=== PATIENT | male | born 1975 | race African-American/Black ===

== ENCOUNTER → 2016-10-17 | Outpatient (CLI) | payer OTHER ==
[~2016-10-17] VITALS: Ht 190.5 cm; Wt 131.5 kg
[~2016-10-17] MED LIST: CELE50CA PO; HYZA100T2 PO; LIDOCAINE 2% INJ 100 MG/5 ML SDV (FOR ANES.) As Ordered ONE; PROPOFOL 200 MG/20 ML VIAL As Ordered ONE
--- NOTE | 2016-10-17 12:22 | ROOR ---
Patient Name: Ignacio Gonzalez Procedure Date: 10/17/2016 11:49 AM Date of : 1975 Age: 41 Room: [facility] Gender: Male Note Status: Finalized Procedure: Colonoscopy Indications: Hematochezia Providers: Cristopher PINEDA MD Referring MD: PARI YAÑEZ MD Requesting Provider: Medicines: Monitored Anesthesia Care Complications: No immediate complications. Procedure: Pre-Anesthesia Assessment: - The heart rate, respiratory rate, oxygen saturations, blood pressure, adequacy of pulmonary ventilation, and response to care were monitored throughout the procedure. The Colonoscope was introduced through the anus and advanced to the cecum, identified by appendiceal orifice and ileocecal valve. The colonoscopy was performed without difficulty. The patient tolerated the procedure well. The quality of the bowel preparation was good. Findings: The perianal and digital rectal examinations were normal. A fungating partially obstructing large mass was found in the distal sigmoid colon. The mass was partially circumferential (involving one-half of the lumen circumference). The mass measured four cm in length. This was biopsied with a cold forceps for histology. Area was tattooed with an injection of Yolis ink. Two sessile polyps were found in the ascending colon. The polyps were diminutive in size. These polyps were removed with a cold snare. Resection and retrieval were complete. The exam was otherwise without abnormality on direct and retroflexion views. Impression: - Rule out malignancy, partially obstructing tumor in the distal sigmoid colon. (at 22 cm from anal verge). Biopsied. Tattooed just distal to lesion. - Two diminutive polyps in the ascending colon, removed with a cold snare. Resected and retrieved. - The examination was otherwise normal on direct and retroflexion views. Recommendation: - Await pathology results. - Refer to a surgeon at appointment to be scheduled. Cristopher Pineda MD Cristopher PINEDA MD 10/17/2016 12:21:51 PM This report has been signed electronically. Number of Addenda: 0 Note Initiated On: 10/17/2016 11:49 AM Estimated Blood Loss: Estimated blood loss: none.
[2016-10-17 12:50] VITALS: BP 148/92
== END | disposition home or self-care (01) ==
LOC: M OPP 10:40
PROVIDERS: ATTEND Internal Medicine Gastroenterology
DX: C18.9 Malignant neoplasm of colon, unspecified (principal); D12.2 Benign neoplasm of ascending colon; I10 Essential (primary) hypertension; G47.30 Sleep apnea, unspecified; Z87.891 Personal history of nicotine dependence; Z79.899 Other long term (current) drug therapy

== ENCOUNTER → 2016-10-24 | Outpatient (CLI) | payer OTHER ==
[~2016-10-24] MED LIST changes: -LIDOCAINE 2% INJ 100 MG/5 ML SDV (FOR ANES.) As Ordered ONE; -PROPOFOL 200 MG/20 ML VIAL As Ordered ONE
[2016-10-24 11:12] LABS: MEAN CORPUSCULAR HEMOGLOBIN 30.4 pg (27.0-33.0); MEAN CORPUSCULAR HGB CONC 34.4 g/dl (32.0-36.5); MEAN CORPUSCULAR VOLUME 88.4 fl (80.0-96.0); RED CELL DISTRIBUTION WIDTH 12.9 % (11.5-14.5); WHITE BLOOD COUNT 6.6 K/mm3 (4.0-10.0)
[2016-10-24 11:55] LABS: CARCINOEMBRYONIC ANTIGEN < 0.5 NG/ML (<2.5)
[2016-10-24 12:02] LABS: ALBUMIN 3.6 GM/DL (3.2-5.2); ALBUMIN/GLOBULIN RATIO 0.92 (1.00-1.93); ALKALINE PHOSPHATASE 103 U/L (45-117); ALT/SGPT 109 U/L (12-78); ANION GAP 5 MEQ/L (8-16); AST/SGOT 35 U/L (15-37); BILIRUBIN,TOTAL 0.7 MG/DL (0.2-1.0); BLOOD UREA NITROGEN 11 MG/DL (7-18); CARBON DIOXIDE LEVEL 32 MEQ/L (21-32); CHLORIDE LEVEL 104 MEQ/L (98-107); CREATININE FOR GFR 0.86 MG/DL (0.70-1.30); GLOMERULAR FILTRATION RATE > 60.0 (>60); GLUCOSE, FASTING 86 MG/DL (70-105); POTASSIUM SERUM 4.1 MEQ/L (3.5-5.1); SODIUM LEVEL 141 MEQ/L (136-145); TOTAL PROTEIN 7.5 GM/DL (6.4-8.2)
== END ==
LOC: M LAB 10:19
PROVIDERS: ATTEND Surgery
DX: C18.7 Malignant neoplasm of sigmoid colon (principal)

== ENCOUNTER → 2016-10-29 | Outpatient (CLI) | payer OTHER ==
[~2016-10-29] MED LIST changes: +GASTROGRAFIN SOLUTION 30ML (Q9963) As Ordered ONE; +IBUP60TA PO; +ISOVUE-370 76% 100ML VIAL (Q9967) As Ordered ONE; +PERCOCET PO
--- NOTE | 2016-10-29 23:17 | REP ---
Clinical: Carcinoma of the sigmoid colon. Technique: Axial contrast enhanced images from the lung bases to the pubic symphysis using oral and 100 ml Isovue 370 intravenous contrast material with multiplanar re-formations, precontrast, and delayed images of the abdomen. Comparison: None. Findings: Lung bases are clear and without obvious consolidation, nodule or mass lesion. A small hiatal hernia is identified at the gastroesophageal junction. Visualized heart and pericardium normal. Liver, spleen, pancreas, gallbladder, bilateral adrenal glands and kidneys are normal. A 1 cm fat containing periumbilical hernia is identified. The enteric system is without obstruction or acute inflammatory process. Normal terminal ileum and appendix are identified in the right lower quadrant. Abdominal aorta and vasculature appears normal. Pelvis demonstrates a presumed distal sigmoid mass measuring roughly 4.1 x 3.7 x 3.0 cm (images 131 - 139). Small scattered mesenteric lymph nodes are identified measuring up to approximately 8 mm short axis diameter and are nonspecific. No pelvic fluid or ascites. Bladder and prostate/seminal vesicles appear normal. Musculoskeletal structures demonstrate degenerative changes to the lumbosacral spine. Findings: 4.1 cm distal sigmoid mass compatible with the given history of carcinoma. Small mesenteric lymph nodes are nonspecific. No ascites. No obvious metastatic disease. Signed by Solis Mckeon MD 10/29/2016 11:08 P
== END ==
LOC: M RAD 08:01
PROVIDERS: ATTEND Surgery
DX: C18.9 Malignant neoplasm of colon, unspecified (principal)

== ENCOUNTER 2016-10-31 12:41 | Inpatient (IN) | payer OTHER ==
--- NOTE | 2016-10-30 17:30 | HPE ---
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 The patient reports that he had noted some occasional rectal bleeding. He apparently had stool guaiac testing that revealed two of three test cards were positive for blood. He underwent a colonoscopy by Dr. Cristopher Pineda on 10/17/2016. This revealed what Dr. Pineda described as a "fungating partially obstructing large mass was found in the distal sigmoid colon. The mass was partially circumferential." The area was biopsied and tattooed just distal to the lesion. Biopsy of the mass revealed foci of moderately to poorly differentiated colonic adenocarcinoma in a background of adenomatous polyp with high-grade dysplasia. He had a CEA level that was in the normal range. A CT of the abdomen and pelvis was done on 10/29/2016. This revealed a thickened area in the distal sigmoid, which the radiologist interpreted as a 4.1 x 3.7 x 3.0 cm mass. He noted some small scattered mesenteric lymph nodes measuring up to 8 mm in size, which were not felt to be specific. There was no evidence of metastatic disease elsewhere. He reports that he has been having regular bowel function. He has no abdominal pain. He indicates that a paternal uncle is currently undergoing treatment for colon cancer and a paternal great-grandmother also had colon cancer. The patient is now being admitted as a morning admission on 10/31/2016 to undergo a laparoscopic sigmoid colectomy. ALLERGIES: The patient denies any known drug allergies. CURRENT MEDICATIONS: Include Hyzaar daily, Celebrex daily and MiraLax on an as needed basis. His medical history is significant for hypertension. He has a history of obstructive sleep apnea and has been outfitted with a continuous positive airway pressure (CPAP) device at night. He has some degenerative disc disease involving his back for which he has some ongoing pain issues. He has his recent diagnosis of colon cancer. Surgical history is significant only for some LASIK eye surgery, and he had his colonoscopy on 10/17/2016. FAMILY HISTORY: The patient's father had hypertension, and his mother has no current medical problems. Two paternal family members, his great grandmother and his uncle, have been diagnosed with colon cancer. SOCIAL HISTORY: The patient is . He has two small children. He is a former smoker, having smoked about one-half pack per day for 15 years. He denies any significant alcohol use. He is currently active duty [employer] but is in the process of working toward long-term. He is reportedly to be on active duty at least into the fall. REVIEW OF SYSTEMS: The patient denies any chills, fever or weight loss. He has had no visual or auditory symptoms. He denies any chest pain or palpitations. He denies any cough, wheezing or sputum production. He does note that he has had some rectal bleeding intermittently. He denies constipation or diarrhea. He denies any dysuria or hematuria. He does have some chronic issues with back pain. He has had no skin issues. He denies any psychiatric problems. He has no history of deep vein thrombosis (DVT) or pulmonary embolus. PHYSICAL EXAMINATION: Reveals a very pleasant man who is 6 feet 4 inches tall with a weight of 135 kg, giving him a body mass index (BMI) of approximately 36. He is alert, oriented and cooperative. Skin: Is warm and dry. Sclerae are anicteric. Mucous membranes are moist. The neck is supple without mass or bruit. Heart: Exam shows a regular rate and rhythm. The lungs are clear to auscultation bilaterally. Abdomen is mildly obese. He has no evident scars. He has normoactive bowel sounds. The abdomen is soft and nontender without appreciable mass. Digital rectal examination was deferred given his very recent colonoscopy, revealing a normal rectum. Extremities: Show intact peripheral circulation. Laboratory studies were obtained on 10/24/2016. A CBC revealed a white count of 6.6 with a hemoglobin of 15, hematocrit of 44% and a platelet count of 269,000. The differential count is normal. Chemistry profile showed a sodium of 141, potassium 4.1, chloride 104, CO2 of 32, BUN of 11, creatinine 0.86 and a glucose of 86. Liver function tests were remarkable only for a minimal elevation of the ALT to 109, his total protein of 7.5 with an albumin of 3.6 and the CEA level is less than 0.5. His CT was done on 10/29/2016 with results as noted in the history of the present illness. IMPRESSION: 1. Sigmoid carcinoma. 2. Obstructive sleep apnea. 3. Hypertension. 4. Chronic back pain. 5. Obesity. PLAN: The patient is being admitted on the morning of 10/31/2016 to undergo a laparoscopic sigmoid colectomy. He is to perform a full mechanical and antibiotic bowel preparation utilizing SUPREP, neomycin, and Flagyl on 10/30/2016. He will receive Entereg preoperatively. He will receive a dose of Invanz preoperatively for prophylaxis. A Oscar catheter will be inserted in the operating room. The patient was counseled for a laparoscopic approach to his sigmoid colectomy. It is understood that conversion to an open procedure is always a possibility. The patient was counseled regarding the risks of the procedure which include, but are not limited to, bleeding, infection, scarring, adverse drug reaction, need for further surgery, injury of internal organ, anastomotic leak, and hernia. The patient and his spouse had an opportunity to ask questions. They desire to proceed with the surgery as I have outlined it. He will be coming in on 10/31/2016. VIKAS
[~2016-10-31] VITALS: Ht 190.5 cm; Wt 134.5 kg
[~2016-10-31 12:41] MED LIST changes: -GASTROGRAFIN SOLUTION 30ML (Q9963) As Ordered ONE; -IBUP60TA PO; -ISOVUE-370 76% 100ML VIAL (Q9967) As Ordered ONE; -PERCOCET PO
[2016-10-31] MEDS ORDERED: LR 1,000 ML IV SCH ×2 (12:45→23:45)
[2016-10-31] MEDS ORDERED: ALVIMOPAN 12 MG CAPSULE (ENTEREG) PO ONE (13:00)
[2016-10-31] MEDS ORDERED: ERTAPENEM SODIUM 1 GM in NS MINI-BAG PLUS 50 ML IV ONE (13:00)
[2016-10-31] MEDS ORDERED: BUPIVACAINE HCL 0.25% 30 ML VIAL As Ordered ONE (17:38)
[2016-10-31] MEDS ORDERED: ROCURONIUM BROMIDE 50 MG/5 ML VIAL As Ordered ONE ×4 (19:02→20:35)
[2016-10-31] MEDS ORDERED: PROPOFOL 200 MG/20 ML VIAL As Ordered ONE (19:11)
[2016-10-31] MEDS ORDERED: KETOROLAC 60 MG/2 ML VIAL (J1885) As Ordered ONE (19:11)
[2016-10-31] MEDS ORDERED: HYDROmorphone HCL 2 MG/ML 1ML VIAL (J1170) As Ordered ONE ×2 (19:11→21:29)
[2016-10-31] MEDS ORDERED: dexameTHASONE 4 MG/ML 1ML VIAL (J1100) As Ordered ONE (19:11)
[2016-10-31] MEDS ORDERED: MIDAZOLAM INJ 2 MG/2 ML VIAL (J2250) As Ordered ONE (19:11)
[2016-10-31] MEDS ORDERED: ONDANSETRON 4MG/2ML VIAL (J2405) As Ordered ONE (19:11)
[2016-10-31] MEDS ORDERED: LIDOCAINE 2% INJ 100 MG/5 ML SDV (FOR ANES.) As Ordered ONE (19:11)
[2016-10-31] MEDS ORDERED: fentaNYL 250 MCG/5 ML INJECTION (J3010) As Ordered ONE (19:11)
[2016-10-31] MEDS ORDERED: GLYCOPYRROLATE INJ 0.2 MG/ML 2 ML VIAL As Ordered ONE (19:11)
[2016-10-31] MEDS ORDERED: NEOSTIGMINE 1MG/ML 5 ML SYRINGE (J2710) As Ordered ONE (19:11)
[2016-10-31] MEDS ORDERED: PHENYLephrine HCL 500 MCG/5 ML (100MCG/ML) SYRINGE (J2370) As Ordered ONE (19:23)
[2016-10-31] MEDS ORDERED: KETOROLAC 30 MG/ML VIAL (J1885) IV SCH (23:30)
[2016-10-31] MEDS ORDERED: ACETAMINOPHEN TAB 650MG DOSE (2X325MG) PO PRN (23:30)
[2016-10-31] MEDS ORDERED: MORPHINE 2 MG/ML 1ML SYRINGE IV PRN (23:30)
[2016-10-31] MEDS ORDERED: ONDANSETRON 4MG/2ML VIAL (J2405) IV PRN ×2 (23:30→23:45)
[2016-10-31] MEDS ORDERED: METOCLOPRAMIDE INJ 10MG/2ML VIAL (J2765) IV PRN (23:30)
[2016-10-31] MEDS: LR 1,000 ML IV SCH (23:30)
[2016-11-01] VITALS (10 sets, daily range): BP systolic 102–138; BP diastolic 65–80
[2016-11-01] MEDS: fentaNYL 100 MCG/2 ML INJECTION (J3010) IV PRN ×3 (00:10→00:42)
[2016-11-01] MEDS: KETOROLAC 30 MG/ML VIAL (J1885) IV SCH ×4 (01:00→20:17)
[2016-11-01] MEDS: NORCO, ANEXSIA 5/325MG TABLET (HYDROcodone/ACETAMINOPHEN) PO PRN ×4 (01:38→18:46)
[2016-11-01] MEDS: ALVIMOPAN 12 MG CAPSULE (ENTEREG) PO SCH ×2 (08:53→20:16)
[2016-11-01] MEDS: LR 1,000 ML IV SCH (08:53)
[2016-11-01] MEDS: hydroCHLOROthiazide 25 MG TAB PO SCH (09:00)
[2016-11-01] MEDS: LOSARTAN 50 MG TAB PO SCH (09:00)
[2016-11-01] MEDS: MORPHINE 4 MG/ML 1ML SYRINGE IV PRN ×2 (09:55→23:38)
[2016-11-01] MEDS: ENOXAPARIN 40 MG/0.4 ML SYRINGE (J1650) SC SCH (12:55)
[2016-11-02] MEDS: KETOROLAC 30 MG/ML VIAL (J1885) IV SCH ×4 (01:44→20:36)
[2016-11-02] MEDS: NORCO, ANEXSIA 5/325MG TABLET (HYDROcodone/ACETAMINOPHEN) PO PRN ×5 (01:46→19:01)
[2016-11-02 02:00] VITALS: BP 126/80
[2016-11-02 05:46] LABS: BASO % 0.2 % (0.0-1.0); EOS % 0.4 % (0.0-3.0); LARGE UNSTAINED CELL # 0.1 K/mm3 (0.0-0.4); LARGE UNSTAINED CELL % 1.4 % (0.0-4.0); LYMPH # 2.4 K/mm3 (1.5-4.5); LYMPH % 24.8 % (24.0-44.0); MEAN CORPUSCULAR HEMOGLOBIN 30.1 pg (27.0-33.0); MEAN CORPUSCULAR HGB CONC 34.3 g/dl (32.0-36.5); MEAN CORPUSCULAR VOLUME 87.7 fl (80.0-96.0); MONO # 0.5 K/mm3 (0.0-0.8); MONO % 5.7 % (0.0-5.0); NEUTROPHILS # 6.1 K/mm3 (1.8-7.7); NEUTROPHILS % 67.5 % (36.0-66.0); PLATELET COUNT, AUTOMATED 249 k/mm3 (150-450); RED CELL DISTRIBUTION WIDTH 13.1 % (11.5-14.5)
[2016-11-02 05:57] LABS: ALBUMIN 2.9 GM/DL (3.2-5.2); ALBUMIN/GLOBULIN RATIO 0.78 (1.00-1.93); ALKALINE PHOSPHATASE 78 U/L (45-117); ALT/SGPT 76 U/L (12-78); ANION GAP 7 MEQ/L (8-16); AST/SGOT 41 U/L (15-37); BILIRUBIN,TOTAL 0.4 MG/DL (0.2-1.0); BLOOD UREA NITROGEN 10 MG/DL (7-18); CALCIUM LEVEL 8.2 MG/DL (8.5-10.1); CARBON DIOXIDE LEVEL 28 MEQ/L (21-32); CHLORIDE LEVEL 105 MEQ/L (98-107); CREATININE FOR GFR 0.88 MG/DL (0.70-1.30); GLOMERULAR FILTRATION RATE > 60.0 (>60); GLUCOSE, FASTING 95 MG/DL (70-105); POTASSIUM SERUM 3.3 MEQ/L (3.5-5.1); SODIUM LEVEL 140 MEQ/L (136-145); TOTAL PROTEIN 6.6 GM/DL (6.4-8.2)
[2016-11-02 06:00] VITALS: BP 137/70
--- NOTE | 2016-11-02 06:33 | RO ---
DATE OF PROCEDURE: 10/31/2016 PREOPERATIVE DIAGNOSIS: Sigmoid carcinoma. POSTOPERATIVE DIAGNOSIS: Sigmoid carcinoma. PROCEDURE PERFORMED: Laparoscopic sigmoid colectomy with coloproctostomy. SURGEON: Dr. Rosa DOBBY LOOMS PEGGER: Giuliano Ortiz ANESTHESIA: General. INDICATIONS FOR THE PROCEDURE: Patient is a 41-year-old man who had noted some rectal bleeding. He underwent evaluation with a colonoscopy, which identified a mass in the sigmoid colon. Pathology revealed moderately to poorly differentiated adenocarcinoma in a background of adenomatous polyp with high-grade dysplasia. He is now for a laparoscopic sigmoid colectomy. OPERATIVE PROCEDURE: The patient was placed on the table in a supine position. He was placed under general endotracheal anesthesia. Thromboembolism deterrents (TEDs) and sequentials were utilized. A Oscar catheter was inserted. He was moved into a low lithotomy position and a liang bag was used to support the patient to prevent movement. A digital rectal examination revealed no palpable rectal lesions. The patient's abdomen was prepped and draped in a sterile fashion. 0.25% Marcaine was infiltrated at the inferior aspect of the umbilicus and a short midline incision was made. This was deepened through the abundant subcutaneous fat to the fascia, which was opened at a point just to the right of the midline. A Kevon cannula was inserted and the abdomen was insufflated with carbon dioxide gas. Initial examination revealed relatively poor insufflation. The Kevon was somewhat adjusted and the patient was then tilted to a Trendelenburg position and the patient also received additional muscle blocking agents from anesthesia. Inspection showed normal-appearing loops of small and large bowel. As the small bowel came up out of the pelvis some scattered small dark spots were noted on the peritoneum consistent with some spilled spot carbon marker. Additional local anesthesia was achieved, and a 5 mm trocar was placed in the right lower quadrant just below the level of the umbilicus and a second 5 mm trocar was placed low in the right lower quadrant. Graspers were inserted. The area of the tumor was identified. There was clearly a firmer area in the bowel, though it appeared that the tumor sat on the mesenteric side of the bowel with the antimesenteric wall stretched over this. The carbon spot marker was noted just distal to the tumor as indicated by the dry house worker. The patient did not have any significant redundancy of the sigmoid colon. I then proceeded to divide some of the lateral attachments of the sigmoid and carried this dissection up along the lateral aspect of the descending colon. The patient was positioned into different positions to facilitate the dissection up along the lateral aspect of the descending colon. This dissection was carried up almost to the splenic flexure area. The avascular plane lateral and posterior to the colon was opened widely and the colon freed quite well. It appeared that this would provide adequate length for an anastomosis at the anticipated site in the pelvis. The site was selected for division of the sigmoid colon just about at the juncture of the descending and sigmoid colon. Another 5 mm port was placed in the left upper quadrant to provide an additional retractor to assist in the dissection and division of the colon. The colon was elevated at the selected point for division and the mesentery was opened down to its base using the Harmonic scalpel. The colon was stapled with a load of the echelon stapler after the 5 mm trocar low in the right lower quadrant was converted to a 12 mm trocar. The bowel was nicely divided with excellent hemostasis. Any remaining portions of the mesentery at this site were divided down to the base. Dissection then proceeded inferiorly dividing the mesentery of the sigmoid at its base and working toward and then across the sacral promontory. Attention was taken to getting into the appropriate plane for a mesorectal excision. This dissection was then carried distally into the pelvis and below the point of the carbon spot marker, which lay distal to the tumor. Once we had reached approximately 5 cm distal to the tumor, the mesorectum was divided working from posteriorly toward the bowel wall, again using the Harmonic scalpel. Once the mesorectum had been divided adequately, the bowel was again stapled with the echelon stapler. Two green loads were required to completely transect the rectum. The specimen was set aside in the right side of the abdomen. The pelvis was irrigated. Some fibrofatty tissue was dissected off the stapled end of the rectum to provide an area for excellent purchase of the cooper for an EEA anastomosis. The end of the colon was then mobilized further by dividing the attachments of the mesentery along the retroperitoneum. This provided the additional length to easily bring the end of the colon down to meet the rectal stump. At this point, the Kevon cannula was removed and the infraumbilical incision was extended to perhaps 7 cm. A Mobius retractor was placed. The specimen was delivered through the wound and set aside. The end of the colon was then delivered. Some fibrofatty tissue was dissected off the end of the colon. The staple line was then excised. A pursestring suture of #2-0 Prolene was placed in the end of the colon and the anvil of a 33 mm EEA stapler was placed into the bowel and the pursestring was tied down. A second additional pursestring was also placed. The end of the colon was then irrigated and then reduced into the abdomen. The Mobius retractor was removed and the surgical team then changed gown and gloves. We then moved to use of the closing tray of instruments with several additional selected endoscopic instruments. At this point, I took the time to open the specimen along the antimesenteric border. The patient was found to have an approximately 5 cm, smooth, finely nodular mass along the mesenteric border of the colon. This was quite firm but was not ulcerated and had a very discrete border and a nice oval shape. There was not any definite invasion through the bowel wall and I did not feel any distinct lymph nodes. This was sent in formalin for permanent pathology. The peritoneum in the infraumbilical incision was closed with #0 chromic suture and the fascia was closed with interrupted sutures of #1 Vicryl. The abdomen was then reinflated. The patient was moved back into a fairly steep Trendelenburg position. The anvil of the stapler was grasped with the anvil grasper. I moved down to the perineum and the 33 mm stapler was then inserted into the anus and advanced to the end of the rectal stump. The post of the stapler was advanced through the rectal wall adjacent to the staple line. There had been a small area in the center of the staple line that looked a little like there was a very small separation and this site was selected for placement of the post. The anvil was then attached to the stapler and the stapler was closed and fired. The stapler was removed and two intact doughnuts of tissue were identified. Inspection of the staple line, and in fact during the course of the stapling, there was a small serosal tear on the anterior aspect of the rectal stump just below the anastomosis. I elected to place a suture in this area using endoscopic suturing. Actually two #3-0 Vicryl sutures were placed to approximate tissue between the rectal stump and the colon across the anastomosis to reinforce this area. The pelvis was then irrigated copiously with saline. Inspection showed that there was no significant tension on the anastomosis. The pelvis was filled with saline and I insufflated air through a colonoscope in the rectum. A noncrushing bowel clamp had been placed across the distal colon above the anastomosis. There was no air leak identified. I was able to clearly see the anastomosis with the colonoscope. There was no bleeding and no evidence of any defect in the anastomosis. The anastomosis appeared to lie at approximately 14 cm above the anal verge. The colonoscope was removed. I again changed gown and gloves. At this point, a final inspection of the abdomen showed no evidence of bleeding. The patient was returned to a flat position. The remaining trocars were used to deflate the abdomen and they were then removed. Prior to removing the 12 mm trocar in the right lower quadrant, an Endo Close device was used to place a single suture in the inner fascia and peritoneum using #0 Vicryl to help prevent herniation. The skin incisions were then all closed with absorbable buried sutures. Steri-Strips were applied. The patient tolerated the procedure well without apparent complication. He was awakened in the operating room, extubated and moved to the recovery room in stable condition. VIKAS
[2016-11-02] MEDS ORDERED: POTASSIUM CHLORIDE 10 MEQ SR TABLET PO ONE (07:45)
[2016-11-02] MEDS: ENOXAPARIN 40 MG/0.4 ML SYRINGE (J1650) SC SCH (09:56)
[2016-11-02] MEDS: LOSARTAN 50 MG TAB PO SCH (09:56)
[2016-11-02] MEDS: hydroCHLOROthiazide 25 MG TAB PO SCH (09:56)
[2016-11-02] MEDS: ALVIMOPAN 12 MG CAPSULE (ENTEREG) PO SCH ×2 (09:56→20:35)
[2016-11-02 10:00] VITALS: BP 167/96
[2016-11-02 14:00] VITALS: BP 152/89
[2016-11-02 22:00] VITALS: BP 160/95
[2016-11-02] MEDS: MORPHINE 4 MG/ML 1ML SYRINGE IV PRN (23:56)
[2016-11-03 02:00] VITALS: BP 142/90
[2016-11-03] MEDS: NORCO, ANEXSIA 5/325MG TABLET (HYDROcodone/ACETAMINOPHEN) PO PRN ×4 (05:08→21:37)
[2016-11-03 06:00] VITALS: BP 132/95
[2016-11-03] MEDS: LOSARTAN 50 MG TAB PO SCH (09:11)
[2016-11-03] MEDS: ALVIMOPAN 12 MG CAPSULE (ENTEREG) PO SCH ×2 (09:11→20:39)
[2016-11-03] MEDS: hydroCHLOROthiazide 25 MG TAB PO SCH (09:12)
[2016-11-03] MEDS: MORPHINE 4 MG/ML 1ML SYRINGE IV PRN (10:28)
[2016-11-03] MEDS: ENOXAPARIN 40 MG/0.4 ML SYRINGE (J1650) SC SCH (11:00)
[2016-11-03 14:30] VITALS: BP 150/83
[2016-11-03 18:00] VITALS: BP 161/103
[2016-11-03] MEDS ORDERED: KETOROLAC 30 MG/ML VIAL (J1885) IV ONE (20:30)
[2016-11-03 22:00] VITALS: BP 150/78
[2016-11-04] MEDS: NORCO, ANEXSIA 5/325MG TABLET (HYDROcodone/ACETAMINOPHEN) PO PRN (02:05)
[2016-11-04 06:00] VITALS: BP 162/68
[2016-11-04] MEDS ORDERED: PERCOCET 5MG/325MG TAB PO PRN ×2 (08:00)
[2016-11-04] MEDS ORDERED: IBUPROFEN 600 MG TAB PO PRN (08:00)
[2016-11-04] MEDS ORDERED: IBUP60TA PO (08:06)
[2016-11-04] MEDS ORDERED: PERCOCET PO (08:06)
[2016-11-04 08:34] VITALS: BP 162/68
[2016-11-04] MEDS: LOSARTAN 50 MG TAB PO SCH (08:34)
[2016-11-04] MEDS: hydroCHLOROthiazide 25 MG TAB PO SCH (08:34)
--- NOTE | 2016-11-22 22:36 | DSES ---
DATE OF ADMISSION: 10/31/2016 DATE OF DISCHARGE: 11/04/2016 ADMITTING DIAGNOSIS: Moderately to poorly-differentiated adenocarcinoma of the sigmoid colon. 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 This was done because of a history of occasional rectal bleeding with two of three stool guaiac test cards turning up positive for blood. At colonoscopy, the informal waiter/waitress described a fungating partially-obstructing large mass in the distal sigmoid colon. The area was biopsied and a tattoo was placed just distal to the lesion. The biopsy revealed foci of moderately to poorly-differentiated adenocarcinoma in a background of adenomatous polyp with high-grade dysplasia. A Carcinoembryonic antigen (CEA) level was obtained that was in the normal range. A CT scan of the abdomen and pelvis was done on October 29, 2016. This revealed a thickened area in the distal sigmoid which the radiologist interpreted as a 4.1 x 3.7 x 3.0 cm mass. He noted some small scattered mesenteric lymph nodes measuring up to 8 mm in size which were not felt to be specific. There was no evidence of metastatic disease elsewhere. The patient is now admitted to undergo a laparoscopic sigmoid colectomy. HOSPITAL COURSE: The patient performed a mechanical and antibiotic bowel preparation at home the day prior to admission. On October 31, he was taken to the operating room where he underwent a laparoscopic sigmoid colectomy with a coloproctostomy. His specimen was removed and opened, revealing an approximately 5 cm smooth but finely nodular mass along the mesenteric border of the rectosigmoid. The tumor was firm but not ulcerated and had a very discrete border. I did not feel any definite lymph nodes within the mesentery. This was sent for permanent pathology. The patient's postoperative course was unremarkable. He was started on clear liquids on the day of surgery. His diet was advanced by postoperative day two. He used infrequent [place] or morphine as needed for pain. He was up ambulating well. He was placed back on his usual blood pressure medications. Because of a slightly low potassium level, he received some oral potassium supplementation. His bowel function was a little slow in returning with his first bowel movements noted on the evening of November 02. His pathology report revealed moderately differentiated adenocarcinoma of the colon invading through the muscularis propria into the pericolic soft tissue. There were two small tumor deposits noted in the pericolic soft tissue, but 17 lymph nodes were identified and these were all negative for metastatic carcinoma. The surgical resection margins were all clear. His tumor was 4 cm in size. By postoperative day four, his discomfort had diminished. His bowel function had returned and he was tolerating a diet well. His incisions were clean and dry. The patient was counseled regarding future care and was discharged home on November 04. FINAL DIAGNOSIS: Moderately differentiated adenocarcinoma of the rectosigmoid with invasion into the pericolonic soft tissue with two small tumor deposits noted in the pericolic soft tissue with zero of 17 lymph nodes positive for metastasis. ADDITIONAL DIAGNOSES: 1. Obstructive sleep apnea. 2. Hypertension. 3. Chronic back pain. 4. Obesity. PROCEDURE PERFORMED: Laparoscopic sigmoid colectomy with coloproctostomy. DISPOSITION: He was discharged on November 04. He was advised that he could take a diet as tolerated. He was to pursue light activity as tolerated, but was advised against any strenuous activity or lifting greater than 30 pounds. He was to followup in my office in 10-14 days. He could shower as desired but leave the Steri-Strips to come off on their own. He was to cover the lower midline wound daily if he noted any drainage. He was provided a note for convalescent leave to provide to his [employer] superiors. He was provided prescriptions for ibuprofen 600 mg by mouth every six hours as needed for pain. He was provided a prescription for Percocet 5/325 tablets 1-2 tablets every four hours as needed for pain, not to exceed eight per day with number 40. He was to continue his celecoxib daily, but was not to take this at the same time as his ibuprofen. He was to resume his Hyzaar as well.
== END 2016-11-04 09:55 | disposition home or self-care (01) | DRG 331 ==
LOC: M OR 12:41 → M RR INP 12:41 → UNDOADMIN 12:41 → M OR 11-01 00:34 → M MS5PR 11-01 00:34 → UNDODISIN 11-04 09:55
PROVIDERS: ADMIT Surgery; ATTEND Surgery
PROC: 0DBM4ZZ Excision of Descending Colon, Percutaneous Endoscopic Approach (ICD-10-PCS; 2016-10-31)
PROC: 0D1M4ZP Bypass Descending Colon to Rectum, Percutaneous Endoscopic Approach (ICD-10-PCS; 2016-10-31)
PROC: 0DTN4ZZ Resection of Sigmoid Colon, Percutaneous Endoscopic Approach (ICD-10-PCS; principal; 2016-10-31 14:30)
DX: C18.7 Malignant neoplasm of sigmoid colon (principal); I10 Essential (primary) hypertension; M54.9 Dorsalgia, unspecified; E66.9 Obesity, unspecified; G47.33 Obstructive sleep apnea (adult) (pediatric); Z99.89 Dependence on other enabling machines and devices; Z82.49 Family history of ischemic heart disease and other diseases of the circulatory system; Z87.891 Personal history of nicotine dependence; Z68.36 Body mass index [BMI] 36.0-36.9, adult; Z80.0 Family history of malignant neoplasm of digestive organs; Z79.899 Other long term (current) drug therapy

== ENCOUNTER → 2016-12-09 | Outpatient (CLI) | payer OTHER ==
[~2016-12-09] MED LIST changes: +IBUP1TAB6 PO; +LISI20TA PO; +PERCOCET PO; +TRAM1CAP15 PO
--- NOTE | 2016-12-10 19:42 | REP ---
PET/CT: History: Restaging colorectal carcinoma. 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 No positive lymph nodes. The patient is status post laparoscopic sigmoid colectomy with coloproctostomy. Diagnosis and treatment in October of 2016. Comparisons: Comparison CT abdomen and pelvis October 29, 2016. TECHNIQUE: 50 minutes following the intravenous injection of a 9.3 mCi dose of F-18 FDG, three-dimensional PET scintigraphy is acquired from the skull base to the proximal thighs. Triplanar noncontrast CT scanning is acquired through the same anatomic range for attenuation correction, and image registration with scan parameters optimized to minimize radiation exposure to the patient. PET scintigraphy and CT datasets were fused and displayed on a workstation with multiplanar and projection display capability. PET/CT Findings: There is no abnormal hypermetabolic uptake in the liver. Normal hepatic and splenic FDG accumulation is seen. There is visible borderline FDG accumulation in a normal size right inguinal lymph node. Maximum standard uptake value is 2.4. Accompanying CT shows two adjacent lymph nodes here, none is enlarged. This is of doubtful significance. There is a somewhat linear pattern of anterior abdominal wall uptake at the laparoscopic incision site with maximum standard uptake value 6.1 here. Given the recent history of surgical procedure, this most likely is healing postsurgical inflammation uptake. No abnormal lymph node uptake is seen in the upper abdomen or retroperitoneum. Left colonic anastomoses is seen with no abnormal hypermetabolic uptake. There is no abnormal thoracic hypermetabolic uptake seen. Head and neck soft tissues are unremarkable. Impression: Increased uptake in the anterior abdominal wall incision site most compatible with postoperative inflammation. No other abnormal hypermetabolic uptake seen. Signed by Dionisio Ceja MD 12/10/2016 09:21 P
== END ==
LOC: M PLARAD 13:28
PROVIDERS: ATTEND Physician Assistant
DX: C18.9 Malignant neoplasm of colon, unspecified (principal)

== ENCOUNTER → 2016-12-17 | Outpatient (REF) | payer OTHER | LOC: M LAB REF 09:04 | PROVIDERS: ATTEND Internal Medicine Medical Oncology | DX: C18.9 Malignant neoplasm of colon, unspecified (principal) ==

== ENCOUNTER 2017-01-01 08:03 | Day surgery (SDC) | payer OTHER ==
[~2017-01-01] VITALS: Ht 190.5 cm; Wt 132.4 kg
[2017-01-01] MEDS ORDERED: LR 1,000 ML IV SCH ×2 (08:15→12:45)
[2017-01-01] MEDS ORDERED: ROCURONIUM BROMIDE 50 MG/5 ML VIAL/SYRINGE As Ordered ONE (08:26)
[2017-01-01] MEDS ORDERED: PROPOFOL 200 MG/20 ML VIAL As Ordered ONE ×3 (08:26→11:19)
[2017-01-01] MEDS ORDERED: LIDOCAINE 2% INJ 100 MG/5 ML SDV (FOR ANES.) As Ordered ONE (08:26)
[2017-01-01] MEDS ORDERED: ONDANSETRON 4MG/2ML VIAL (J2405) As Ordered ONE (08:26)
[2017-01-01] MEDS ORDERED: MIDAZOLAM INJ 2 MG/2 ML VIAL (J2250) As Ordered ONE (08:27)
[2017-01-01] MEDS ORDERED: fentaNYL 100 MCG/2 ML INJECTION (J3010) As Ordered ONE (08:27)
[2017-01-01] MEDS ORDERED: LIDOCAINE 1% SDV INJ 30 ML VIAL As Ordered ONE (10:06)
[2017-01-01] MEDS ORDERED: HEPARIN SOD (PORCINE) 5000 UNITS/ML VIAL As Ordered ONE (10:06)
--- NOTE | 2017-01-01 12:23 | REP ---
Fluoroscopic guidance for Lrkcou-Q-Ciya insertion: 01/01/2017 Clinical history: Stlltt-Q-Tvut insertion. Findings: A single image from C-arm fluoroscopy provided to Dr. Rosa of the surgery department for Jjwmzc-A-Dqil insertion. The AP view of the upper chest region and mediastinum shows catheter tip extending into the SVC. Fluoroscopy time 2 seconds. Signed by Bennett Lujan MD 01/01/2017 06:31 P
[2017-01-01] MEDS ORDERED: ACETAMINOPHEN TAB 650MG DOSE (2X325MG) PO PRN (12:45)
[2017-01-01] MEDS ORDERED: PERCOCET 5MG/325MG TAB PO PRN ×2 (12:45)
[2017-01-01 12:55] VITALS: BP 180/105
--- NOTE | 2017-01-03 09:37 | RO ---
DATE OF PROCEDURE: 01/01/2017 PREOPERATIVE DIAGNOSIS: Rectosigmoid carcinoma for chemotherapy. POSTOPERATIVE DIAGNOSIS: Rectosigmoid carcinoma for chemotherapy. PROCEDURE PERFORMED: Placement of right internal jugular vein [id number] with ultrasound and fluoroscopic guidance. SURGEON: Dr. Rosa ANESTHESIA: Local of 1% Xylocaine with monitored anesthesia care. OPERATIVE PROCEDURE: The patient was placed on the table in a supine position. Then he received sedation from anesthesia. The patient's right neck and upper chest and shoulder were prepped and draped in a sterile fashion. [facility] used to inspect the neck and the patient was tilted into a Trendelenburg position. The carotid artery and internal jugular vein were identified readily on the right. 1% Xylocaine was infiltrated over the area of the internal jugular vein. An 18 gauge needle was then inserted using ultrasound guidance. There was excellent return of blood. A guidewire was placed. The skin was nicked at the wire entry site. The peel-away sheath introducer was passed and the Bard port Ooqqgx-H-Jijo catheter which had previously been flushed with heparinized saline was inserted. The sheath was removed and the patient was returned to a flat position. Blood aspirated readily from the catheter and this was then flushed with heparinized saline. The catheter was pulled back to approximately 15 cm at the skin. A fluoroscopic inspection showed that the catheter was probably a little deep and this was pulled back to approximately 13 cm where there was still excellent return of blood on aspiration and a better position of the tip of the catheter. A subcutaneous pocket was created through a small transverse incision in the infraclavicular fossa after injection of additional local anesthesia. The catheter was then tunneled down to the port pocket. The catheter was cut to length and attached to the port with the locking ring. The port was placed into the subcutaneous pocket and two corner sutures of #3-0 Vicryl were placed to tack the port to the underlying fascia. The skin edges were brought together with some buried sutures of #3-0 chromic. The two skin incisions were then closed with buried #5-0 Vicryl. The port was accessed a final time and flushed with 100 units/cc heparin solution. Steri-Strips were applied followed by small OpSite dressings. The patient tolerated the procedure well without apparent complication. The port placed was a Bard port [id number]-U-[id number] product code number [id number] and lot number [id number]. MTDD
== END 2017-01-01 13:00 | disposition home or self-care (01) ==
LOC: M SDC 08:03
PROVIDERS: ATTEND Surgery
DX: C18.7 Malignant neoplasm of sigmoid colon (principal); I10 Essential (primary) hypertension; G47.33 Obstructive sleep apnea (adult) (pediatric); M12.9 Arthropathy, unspecified; M54.2 Cervicalgia; M54.5 Low back pain; R06.83 Snoring; Z79.899 Other long term (current) drug therapy
CPT/HCPCS: 36561; 76000; C1788; J0690; J2250; J2405; J3010

== ENCOUNTER → 2017-01-07 | Outpatient (REF) | payer OTHER | LOC: M LAB REF 13:16 | PROVIDERS: ATTEND Internal Medicine Medical Oncology | DX: C18.9 Malignant neoplasm of colon, unspecified (principal) ==

== ENCOUNTER → 2017-01-21 | Outpatient (REF) | payer OTHER | LOC: M LAB REF 14:04 | PROVIDERS: ATTEND Internal Medicine Medical Oncology | DX: C18.9 Malignant neoplasm of colon, unspecified (principal) ==